=== PATIENT | female | born 1975 | race Caucasian/White ===

== ENCOUNTER 2016-06-28 15:06 | Outpatient (RCR) | payer BC | END 2016-09-26 | disposition home or self-care (01) | LOC: CARDLAB | DX: Z48.812 Encounter for surgical aftercare following surgery on the circulatory system (principal); I25.10 Atherosclerotic heart disease of native coronary artery without angina pectoris; Z95.5 Presence of coronary angioplasty implant and graft ==

== ENCOUNTER 2016-08-03 07:56 | Outpatient (RCR) | payer BC | END 2016-11-01 | disposition home or self-care (01) | LOC: PT | DX: M54.2 Cervicalgia (principal); M48.02 Spinal stenosis, cervical region ==

== ENCOUNTER → 2016-08-16 | Outpatient (CLI) | payer BC | LOC: MAMMO 15:08 | DX: Z12.31 Encounter for screening mammogram for malignant neoplasm of breast (principal) | CPT/HCPCS: G0202 ==

== ENCOUNTER → 2023-02-19 | Day surgery (SDC) | payer BC | END | disposition home or self-care (01) | LOC: MSO 07:30 | DX: Z12.11 Encounter for screening for malignant neoplasm of colon (principal); F17.210 Nicotine dependence, cigarettes, uncomplicated | CPT/HCPCS: 00812; J2704; J7120 ==